=== PATIENT | female | born 1955 | race Two or more races ===

== ENCOUNTER 2018-08-09 18:46 | Observation (INO) | payer OTHER ==
--- NOTE | 2018-08-09 19:28 | PDOC ---
History of Present Illness - General Chief Complaint: Chest Pain Stated Complaint: CHEST PAIN Time Seen by Provider: 08/09/18 19:26 - History of Present Illness Initial Comments: 63 year old female with a significant PMH of DM, HTN, hyperlipidemia, GERD, gastric ulcers, asthma, fibromyalgia, and is s/p cholecystectomy, cardiac stent (15 years prior in [place]), and bladder lift presenting with acute on chronic chest pain. States that she has had chronic chest pain for the past 10 years which flares up approximately 3 times per month, she typically just waits for the pain to subside and has had Tylenol in the past without much relief. She states the pain is in her upper left and bilateral shoulders with worsening on upper body movement and deep inhalation. She does take gabapentin and lyrica for her fibromyalgia. Denies fevers, chills, nausea, vomiting, diarrhea, SOB, or other symptoms. 08/09/18 20:49 Past History - Past Medical History Allergies/Adverse Reactions: Allergies Allergy/AdvReac Type Severity Reaction Status Date / Time No Known Drug Allergies Allergy Verified 08/09/18 18:53 Home Medications: Ambulatory Orders Pregabalin [Lyrica -] 75 mg PO TID 09/15/14 Gabapentin 300 mg PO BID 08/09/18 Metoprolol Succinate 25 mg PO DAILY 08/09/18 Anemia: No Asthma: No Cancer: Yes (RT.BREST LUMPECTOMY) Cardiac Disorders: Yes CVA: No COPD: No CHF: No Dementia: No Diabetes: Yes GI Disorders: Yes Disorders: No HTN: Yes Hypercholesterolemia: No Liver Disease: No Seizures: No Thyroid Disease: No - Surgical History Abdominal Surgery: No Appendectomy: No Cardiac Surgery: Yes (stent) Cholecystectomy: Yes Lung Surgery: No Neurologic Surgery: Yes (spine surgery) Orthopedic Surgery: No - Immunization History Immunization Up to Date: No - Suicide/Smoking/Psychosocial Hx Smoking Status: No Smoking History: Never smoked Years of Tobacco Use: 30 Have you smoked in the past 12 months: No Number of Cigarettes Smoked Daily: 0 Cigars Per Day: 2 Information on smoking cessation initiated: No Hx Alcohol Use: No Drug/Substance Use Hx: No Substance Use Type: None Hx Substance Use Treatment: No Review of Systems - Review of Systems Constitutional: No: Chills, Diaphoresis, Fever, Loss of Appetite HEENTM: No: Eye Pain, Blurred Vision, Tearing Respiratory: No: Cough, Orthopnea, Shortness of Breath Cardiac (ROS): No: Chest Pain, Edema, Irregular Heart Rate ABD/GI: No: Diarrhea, Nausea, Vomiting : No: Dysuria, Discharge, Frequency Musculoskeletal: Yes: Joint Pain. No: Joint Swelling, Muscle Pain Integumentary: No: Bruising, Lesions, Lumps Neurological: No: Headache, Numbness, Paresthesia Psychiatric: Yes: Anxiety. No: Depression Hematologic/Lymphatic: No: Anemia, Blood Clots *Physical Exam - Vital Signs Last Vital Signs Temp Pulse Resp BP Pulse Ox 98.6 F 69 17 128/68 95 08/09/18 18:53 08/09/18 18:53 08/09/18 18:53 08/09/18 18:53 08/09/18 18:53 - Physical Exam General Appearance: Yes: Nourished, Appropriately Dressed. No: Apparent Distress HEENT: positive: EOMI, SIRENA, Normal ENT Inspection, Normal Voice Neck: positive: Trachea midline, Normal Thyroid, Supple. negative: Tender, Rigid Respiratory/Chest: positive: Chest Tender (TP over left uppe breast and bilateral shoulders), Lungs Clear, Normal Breath Sounds. negative: Respiratory Distress Cardiovascular: positive: Regular Rhythm, Regular Rate Gastrointestinal/Abdominal: positive: Normal Bowel Sounds, Flat, Soft. negative : Tender Lymphatic: negative: Adenopathy, Tenderness Musculoskeletal: positive: Normal Inspection, Decreased Range of Motion Extremity: positive: Normal Capillary Refill, Normal Inspection, Tender. negative: Normal Range of Motion Integumentary: positive: Normal Color, Dry, Warm Neurologic: positive: Fully Oriented, Alert, Normal Mood/Affect, Normal Response , Motor Strength 5/5 Heart Score/ECG Review - History History: Moderately suspicious - Electrocardiogram EKG: Normal - Age Age: 45-65 - Risk Factors Risk Factors Heart Score: Yes Hx Hypercholesterolemia, Yes Hx Hypertension, Yes Hx Diabetes Based on the list above the patient has:: >/=3 risk factors or Hx atherosclerotic disease - Troponin Troponin: </= normal limit - Score Heart Score - Total: 4 ED Treatment Course - LABORATORY CBC & Chemistry Diagram: 08/09/18 19:50 08/09/18 19:50 Medical Decision Making - Medical Decision Making 63 year old with CAD and chronic chest pain presenting with acute chest pain. EKG demonstratign NSR without ischemic changes and labs wnl with negative troponin. Will admit for tele obs for rule out acs given heart score of 4. patient also given cardiac dose aspirin 08/10/18 04:40 *DC/Admit/Observation/Transfer Diagnosis at time of Disposition: Chest pain Qualifiers: Chest pain type: pleurodynia Qualified Code(s): R07.81 - Pleurodynia - Discharge Dispostion Condition at time of disposition: Stable Decision to Admit order: Yes - Referrals - Patient Instructions - Post Discharge Activity
--- NOTE | 2018-08-09 20:37 | PDOC ---
Attending Attestation - HPI HPI: 08/09/18 21:23 The patient is a 63 year old female, as per old documentation patient has a significant PMH of DM, HTN, hyperlipidemia, GERD, gastric ulcers, asthma, fibromyalgia, and is s/p cholecystectomy, cardiac stent, and bladder lift, however, today she reports she only has fibromyalgia (on gabapentin and disability) who presents to the emergency department with epigastric pain and bilateral shoulder pain since 9am, with no relief. The patient states her shoulder pain is aggravated with shoulder movement. The patient denies taking any medication today besides her gabapentin. The patient states she endorses nausea and stomach pain that is due to not eating today. The patient denies chest pain, shortness of breath, headache or dizziness. The patient denies fever, chills, diarrhea or constipation. The patient denies dysuria, frequency, urgency or hematuria. Allergies: NKA Past surgical history: RT.BREST LUMPECTOMY, Cholecystectomy, spine surgery Social history: Tobacco use ( 2 cigars per day) PCP: Ayanna Jennings - Physicial Exam PE: 08/09/18 21:23 GENERAL: Awake, alert, and fully oriented, in no acute distress HEAD: No signs of trauma EYES: (+) arcus senilis. PERRLA, EOMI, sclera anicteric, conjunctiva clear ENT: Auricles normal inspection, hearing grossly normal, nares patent, oropharynx clear without exudates. Moist mucosa NECK: Normal ROM, supple, no lymphadenopathy, JVD, or masses LUNGS: Breath sounds equal, clear to auscultation bilaterally. No wheezes, and no crackles HEART: Regular rate and rhythm, normal S1 and S2, no murmurs, rubs or gallops ABDOMEN: Soft, nontender, normoactive bowel sounds. No guarding, no rebound. No masses EXTREMITIES: (+) minimal epigastric pain. (+) bilateral shoulder tenderness. Normal range of motion, no edema. No clubbing or cyanosis. No cords, erythema, or tenderness NEUROLOGICAL: Cranial nerves II through XII grossly intact. Normal speech, normal gait SKIN: Warm, Dry, normal turgor, no rashes or lesions noted. <Mare Barney - Last Filed: 08/09/18 21:23> - Resident Resident Name: Ali,Khameinei - ED Attending Attestation I have performed the following: I have examined & evaluated the patient, The case was reviewed & discussed with the resident, I agree w/resident's findings & plan - Medical Decision Making 08/09/18 21:16 Pt comes with epigastric pain, as well as bilateral shoulder pain. Pt states that the pain has not remitted. Her shoulder pain is worse with ranging of her shoulders. 08/09/18 21:18 08/09/18 21:19 Pt has clear lung blount on CXR. Slightly globular heart, same as old. 08/09/18 22:17 First troponin normal; chemistry is normal Pt will be admitted to obs <Yneni Grayson - Last Filed: 08/10/18 20:29> Attestations - Attestations 08/09/18 21:24 Documentation prepared by Mare Barney, acting as medical technologist hematology for Yenni Grayson MD <Mare Barney - Last Filed: 08/09/18 21:23>
[2018-08-09] MEDS ORDERED: KETOROLAC TROMETHAMINE 30 MG/1 ML VIAL IVPUSH ONE (21:15)
[2018-08-09] MEDS ORDERED: FAMOTIDINE 20 MG/50 ML IVPB 20 MG/50 ML MG IVPB ONE ×2 (21:15→21:29)
[2018-08-09] MEDS ORDERED: SODIUM CHLORIDE 0.9% 500 ML INFUS.BAG IV ONE (21:15)
[2018-08-09] MEDS ORDERED: MAG HYDROX/AL HYDROX/SIMETH 30 ML UNIT-DOSE CUP PO ONE (21:15)
[2018-08-09] MEDS ORDERED: ASPIRIN 81 MG CHEWABLE TABLETS PO ONE (21:18)
[2018-08-09 21:26] LABS: ALBUMIN 3.4 g/dl (3.4-5.0); ALK PHOS 89 U/L (45-117); ANION GAP 6 MMOL/L (8-16); BILIRUBIN,TOTAL 0.3 mg/dL (0.2-1); BLOOD UREA NITROGEN 23 mg/dL (7-18); CALCIUM 8.3 mg/dL (8.5-10.1); CHLORIDE 109 mmol/L (98-107); CO2 28 mmol/L (21-32); GLUCOSE,RANDOM 92 mg/dL (74-106); N-TERMINAL BNP 134.3 pg/ml (5-125); POTASSIUM 4.3 mmol/L (3.5-5.1); SGOT/AST 21 U/L (15-37); SGPT/ALT 37 U/L (13-61); SODIUM 143 mmol/L (136-145); TOT PROT 6.8 g/dl (6.4-8.2)
[2018-08-09] MEDS ORDERED: ASPIRIN 81 MG CHEWABLE TABLETS ONE (21:28)
[2018-08-09] MEDS ORDERED: KETOROLAC TROMETHAMINE 30 MG/1 ML VIAL ONE (21:29)
[2018-08-09] MEDS ORDERED: MAG HYDROX/AL HYDROX/SIMETH 30 ML UNIT-DOSE CUP ONE (21:29)
[2018-08-09 22:50] LABS: BASO % 0.2 % (0-2.0); HEMATOCRIT 37.7 % (32.4-45.2); HEMOGLOBIN 12.2 GM/dL (10.7-15.3); MCH 28.3 pg (25.7-33.7); MCHC 32.3 g/dl (32.0-36.0); MEAN CELL VOLUME 87.6 fl (80-96); MEAN PLT VOLUME 9.5 fl (7.5-11.1); MONO % 7.6 % (3.8-10.2); NEUT % 54.2 % (42.8-82.8); PLATELET COUNT 228 K/MM3 (134-434); RBC 4.31 M/mm3 (3.60-5.2); RDW 14.9 % (11.6-15.6); WHITE BLOOD COUNT 6.9 K/mm3 (4.0-10.0)
--- NOTE | 2018-08-09 23:01 | HP ---
CHIEF COMPLAINT: Chest pain PCP: Dr. Manzano HISTORY OF PRESENT ILLNESS: Ashley Kaur is a 63 yr old F, medical condition DM, HTN, hyperlipidemia, GERD , gastric ulcers, asthma, fibromyalgia, and is s/p cholecystectomy, cardiac stent, and bladder lift, presented to ED with c/o left sided chest pain, pain radiating to both shoulders down arms, that started this morning, pt denies sob , dizziness, as per pt, reports getting chest pain in the past, ER course was notable for: (1)Trop 0.02 (2)EKG NSR (3) Recent Travel: PAST MEDICAL HISTORY:DM, HTN, hyperlipidemia, GERD, gastric ulcers, asthma, fibromyalgia, PAST SURGICAL HISTORY:s/p cholecystectomy, cardiac stent, bladder lift, Social History: Smoking:smokes 2 cigars Alcohol:denies Drugs: denies Family History: Allergies No Known Drug Allergies Allergy (Verified 08/09/18 18:53) HOME MEDICATIONS: Home Medications Medication Instructions Recorded Pregabalin [Lyrica -] 75 mg PO TID 09/15/14 Gabapentin 300 mg PO BID 08/09/18 Metoprolol Succinate 25 mg PO DAILY 08/09/18 REVIEW OF SYSTEMS CONSTITUTIONAL: Absent: fever, chills, diaphoresis, generalized weakness, malaise, loss of appetite, weight change HEENT: Absent: rhinorrhea, nasal congestion, throat pain, throat swelling, difficulty swallowing, mouth swelling, ear pain, eye pain, visual changes CARDIOVASCULAR: +chest pain Absent: syncope, palpitations, irregular heart rate, lightheadedness, peripheral edema RESPIRATORY: Absent: cough, shortness of breath, dyspnea with exertion, orthopnea, wheezing, stridor, hemoptysis GASTROINTESTINAL: Absent: abdominal pain, abdominal distension, nausea, vomiting, diarrhea, constipation, melena, hematochezia GENITOURINARY: Absent: dysuria, frequency, urgency, hesitancy, hematuria, flank pain, genital pain MUSCULOSKELETAL: + bilateral shoulder pain Absent: myalgia, arthralgia, joint swelling, back pain, neck pain SKIN: Absent: rash, itching, pallor HEMATOLOGIC/IMMUNOLOGIC: Absent: easy bleeding, easy bruising, lymphadenopathy, frequent infections ENDOCRINE: Absent: unexplained weight gain, unexplained weight loss, heat intolerance, cold intolerance NEUROLOGIC: Absent: headache, focal weakness or paresthesias, dizziness, unsteady gait, seizure, mental status changes, bladder or bowel incontinence PSYCHIATRIC: Absent: anxiety, depression, suicidal or homicidal ideation, hallucinations. PHYSICAL EXAMINATION Vital Signs - 24 hr 08/09/18 08/09/18 18:53 19:30 Temperature 98.6 F Pulse Rate 69 Respiratory 17 Rate Blood Pressure 128/68 O2 Sat by Pulse 95 95 Oximetry (%) GENERAL: Awake, alert, and fully oriented, in no acute distress. HEAD: Normal with no signs of trauma. EYES: Pupils equal, round and reactive to light, extraocular movements intact, sclera anicteric, conjunctiva clear. No lid lag. EARS, NOSE, THROAT: Ears normal, nares patent, oropharynx clear without exudates. Moist mucous membranes. NECK: Normal range of motion, supple without lymphadenopathy, JVD, or masses. LUNGS: Breath sounds equal, clear to auscultation bilaterally. No wheezes, and no crackles. No accessory muscle use. HEART: Regular rate and rhythm, normal S1 and S2 without murmur, rub or gallop. ABDOMEN: Soft, nontender, not distended, normoactive bowel sounds, no guarding, no rebound, no masses. No hepatomegaly or splenomegaly. MUSCULOSKELETAL: limited range of motion b/l upper ext. . No bony deformities or tenderness. No CVA tenderness. UPPER EXTREMITIES: 2+ pulses, warm, well-perfused. No cyanosis. No clubbing. No peripheral edema. LOWER EXTREMITIES: 2+ pulses, warm, well-perfused. No calf tenderness. No peripheral edema. NEUROLOGICAL: Cranial nerves II-XII intact. Normal speech. Normal gait. PSYCHIATRIC: Cooperative. Good eye contact. Appropriate mood and affect. SKIN: Warm, dry, normal turgor, no rashes or lesions noted, normal capillary refill. Laboratory Results - last 24 hr 08/09/18 08/09/18 19:50 19:50 WBC 6.9 RBC 4.31 Hgb 12.2 Hct 37.7 MCV 87.6 MCH 28.3 MCHC 32.3 RDW 14.9 Plt Count 228 MPV 9.5 Absolute Neuts (auto) 3.7 Neutrophils % 54.2 D Lymphocytes % 37.0 Monocytes % 7.6 Eosinophils % 1.0 Basophils % 0.2 Nucleated RBC % 0 Sodium 143 Potassium 4.3 Chloride 109 H Carbon Dioxide 28 Anion Gap 6 L BUN 23 H Creatinine 1.0 Creat Clearance w eGFR 55.82 Random Glucose 92 Calcium 8.3 L Total Bilirubin 0.3 AST 21 ALT 37 Alkaline Phosphatase 89 Troponin I < 0.02 B-Natriuretic Peptide 134.3 H Total Protein 6.8 Albumin 3.4 ASSESSMENT/PLAN: Ashley Kaur is a 63 yr old F, medical condition DM, HTN, Fibromyalgia, GERD, gastric ulcers, asthma, admitted under observation for Admitting Diagnosis acute on chronic Chest pain r/o FL Chronic Problems DM HTN Fibromyalgia GERD Asthma #acute on chronic, Chest pain r/o FL -tele obs -asa, on BB -serial trop, 1st trop 0.02 -EKG NSR -Cardio consult Dr. Crawford -pain mgt #DM -monitor FS BID -not on meds -diet controlled #HTN -on BB #Fibromyalgia -on lyrica and gabapentin #GERD -received pepcid in ED-will cont #Asthma-stable -o2 pRN -no use of inhalers Dispo: requires inpatient treatment Visit type - Emergency Visit Emergency Visit: Yes Care time: The patient presented to the Emergency Department on the above date and was hospitalized for further evaluation of their emergent condition. - New Patient This patient is new to me today: Yes Date on this admission: 08/09/18 - Critical Care Critical Care patient: No
[2018-08-10 03:58] VITALS: BMI 33.0
[2018-08-10] MEDS: PREGABALIN 75 MG CAPSULE PO SCH ×2 (06:44→13:31)
--- NOTE | 2018-08-10 08:09 | PN ---
Progress Note, Physician Chief Complaint: Chest pain History of Present Illness: NAD On tele initial eval negative No changes in EKG Trops negative awaiting cardiology consult has had similar pains in the past Sees Dr Herman EGD+ colonoscopy within past 1 year-states it was okay Hx of gastric sleeve Not on any PPI at home Denies any NSAID use - Current Medication List Current Medications: Active Medications Aspirin (Ecotrin -) 81 mg PO DAILY [facility] Gabapentin (Neurontin -) 300 mg PO BID [facility] Heparin Sodium (Porcine) (Heparin -) 5,000 unit SQ BID [facility] Famotidine/Sodium Chloride (Pepcid 20 Mg Premixed Ivpb -) 20 mg in 50 mls @ 100 mls/hr IVPB BID [facility] Metoprolol Succinate (Toprol Xl -) 25 mg PO DAILY [facility] Pregabalin (Lyrica -) 75 mg PO TID [facility] Last Admin: 08/10/18 06:44 Dose: 75 mg - Objective Vital Signs: Vital Signs Temperature 97.9 F 08/10/18 06:00 Pulse Rate 56 L 08/10/18 06:00 Respiratory Rate 16 08/10/18 06:00 Blood Pressure 125/74 08/10/18 06:00 O2 Sat by Pulse Oximetry (%) 98 08/10/18 03:45 Constitutional: Yes: Well Nourished, No Distress, Calm Cardiovascular: Yes: Regular Rate and Rhythm Respiratory: Yes: Regular Gastrointestinal: Yes: Normal Bowel Sounds, Soft, Tenderness, Epigastrium Musculoskeletal: Yes: WNL Extremities: Yes: WNL Edema: No Peripheral Pulses WNL: Yes Neurological: Yes: Alert, Oriented Psychiatric: Yes: Alert, Oriented Problem List - Problems (1) Atypical chest pain Assessment/Plan: -No EKG changes -Mildly bradycardic-asymptomatic -On toporol 25 mg po daily, decreased to 12.5 mg Code(s): R07.89 - OTHER CHEST PAIN (2) Epigastric abdominal pain Assessment/Plan: -Hx of gastric ulcers -Seen by Dr Herman outaptient -Has EGD and Colonoscopy within past 1 year-states the results were okay -Not on any PPI at home -Has had similar pains in the past -Mylanta 30 ml Q6H mirian for next 24 hours, -also start pantoprazole 40 mg po QD Code(s): R10.13 - EPIGASTRIC PAIN (3) History of sleeve gastrectomy Code(s): Z90.3 - ACQUIRED ABSENCE OF STOMACH [PART OF] Assessment/Plan See problem list Self ambulatory D/C home on PPI if cleared by Cardiology
[2018-08-10 08:13] LABS: BASO % 0.3 % (0-2.0); EOS % 0.9 % (0-4.5); HEMATOCRIT 36.9 % (32.4-45.2); LYMPH % 36.4 % (8-40); MCH 28.1 pg (25.7-33.7); MCHC 32.6 g/dl (32.0-36.0); MEAN CELL VOLUME 86.1 fl (80-96); MEAN PLT VOLUME 9.5 fl (7.5-11.1); MONO % 7.1 % (3.8-10.2); NEUT % 55.3 % (42.8-82.8); PLATELET COUNT 224 K/MM3 (134-434); RBC 4.28 M/mm3 (3.60-5.2); WHITE BLOOD COUNT 5.3 K/mm3 (4.0-10.0)
--- NOTE | 2018-08-10 08:15 | CON.CARD ---
Consult Consult Specialty:: cardio - History of Present Illness Chief Complaint: cp History of Present Illness: 63 F here with CP. pt describes pinpoint pain R of sternal border (1 fingerbreadth) that occurred yest. tender in this area. also describes pain in both arms--WORSE WITH MOVEMENT OF THE ARMS so kept them still doesn't know whether had stent in past but had cath at [facility] "long time ago"-- sees zuleika has sob when walks on street WHICH IS STABLE FOR YEARS no fever no palpit PMH: DM, HTN, hyperlipidemia, GERD, gastric ulcers, asthma, fibromyalgia, and is s/p cholecystectomy, cardiac stent - Past Medical History Cardio/Vascular: Yes: HTN Musculoskeletal: Yes: Chronic low back pain Endocrine: Yes: Diabetes Mellitus - Past Surgical History Past Surgical History: Yes: Laminectomy (cervical, decompression and fusion, lumbar fusion) - Alcohol/Substance Use Hx Alcohol Use: No History of Substance Use: reports: None - Smoking History Smoking history: Never smoked Have you smoked in the past 12 months: No Aproximately how many cigarettes per day: 0 - Social History Occupation: former [employer] now on disability/workman's comp x3 years Home Medications - Allergies Allergies/Adverse Reactions: Allergies Allergy/AdvReac Type Severity Reaction Status Date / Time No Known Drug Allergies Allergy Verified 08/09/18 18:53 - Home Medications Home Medications: Ambulatory Orders Pregabalin [Lyrica -] 75 mg PO TID 09/15/14 Gabapentin 300 mg PO BID 08/09/18 Metoprolol Succinate 25 mg PO DAILY 08/09/18 Family Disease History - Family Disease History Family Disease History: Diabetes: Mother (leg ampuations), CA: Sister (breast cancer), Other: Father (HTN) Review of Systems - Review of Systems Constitutional: denies: Chills, Fever Eyes: denies: Eye Pain HENT: denies: Nasal Congestion Neck: denies: Stiffness Cardiovascular: denies: Palpitations Respiratory: denies: Orthopnea, PND Gastrointestinal: denies: Diarrhea, Rectal Bleeding Genitourinary: denies: Burning, Hematuria Musculoskeletal: denies: Muscle Pain Integumentary: denies: Rash Neurological: denies: Numbness, Seizure, Syncope Endocrine: denies: Excessive Sweating Hematology/Lymphatic: denies: Excessive Bleeding Vital Signs: Vital Signs Temperature 97.9 F 08/10/18 06:00 Pulse Rate 56 L 08/10/18 06:00 Respiratory Rate 16 08/10/18 06:00 Blood Pressure 125/74 08/10/18 06:00 O2 Sat by Pulse Oximetry (%) 98 08/10/18 03:45 Constitutional: Yes: Well Nourished, No Distress Eyes: No: Sclera Icterus HENT: No: Nasal Congestion Neck: No: Decreased ROM Respiratory: Yes: CTA Bilaterally. No: Accessory Muscle Use, Rales, Wheezes Gastrointestinal: Yes: Normal Bowel Sounds. No: Distention, Hepatomegaly, Palpable Mass, Tenderness Cardiovascular: Yes: Regular Rate and Rhythm, Other (exquisite tenderness over affecte area R costochondral) JVD: No Carotid Bruit: No PMI: Non-Displaced Heart Sounds: Yes: S1, S2. No: Gallop Murmur: No: Systolic Murmur, Diastolic Murmur Musculoskeletal: Yes: Other (No kyphosis) Extremities: No: Cool, Cyanosis Edema: No Peripheral Pulses: 2+ Left Carotid, 2+ Right Carotid, 2+ Left Doralis Pedis, 2+ Right Dorsalis Pedis Integumentary: No: Jaundice Neurological: Yes: Alert, Oriented (x3) Psychiatric: No: Agitated - Other Data Labs, Other Data: Troponin, BNP 08/09/18 08/10/18 19:50 02:49 Troponin I < 0.02 < 0.02 B-Natriuretic Peptide 134.3 H Troponin, BNP 08/09/18 08/10/18 19:50 02:49 Troponin I < 0.02 < 0.02 B-Natriuretic Peptide 134.3 H Laboratory Tests 08/09/18 08/09/18 08/10/18 19:50 19:50 02:49 WBC 6.9 Hgb 12.2 Plt Count 228 Sodium 143 Potassium 4.3 Carbon Dioxide 28 BUN 23 H Creatinine 1.0 AST 21 ALT 37 Troponin I < 0.02 < 0.02 B-Natriuretic Peptide 134.3 H Assessment/Plan ECG 08/09: NSR, WNL CXR: clear lungs/pleura chest pain, h/o CAD: -details of prior cardiac w/u and mgmt unknown -trop neg x 2. -ECG normal -CP is sec to costochondritis, reproducible on exam--prn NSAIDs -bilat arm pain is mskel with strong positional features -no further cv workup needed as inpt -outpt f/u zuleika HTN: -bp controlled -same plan DM: -per primary
[2018-08-10 08:42] LABS: ALBUMIN 3.2 g/dl (3.4-5.0); ALK PHOS 80 U/L (45-117); ANION GAP 6 MMOL/L (8-16); BILIRUBIN,TOTAL 0.9 mg/dL (0.2-1); BLOOD UREA NITROGEN 17 mg/dL (7-18); CALCIUM 8.3 mg/dL (8.5-10.1); CHLORIDE 109 mmol/L (98-107); CO2 28 mmol/L (21-32); CREATININE 0.9 mg/dL (0.55-1.3); GLUCOSE,RANDOM 82 mg/dL (74-106); MAGNESIUM 2.4 mg/dL (1.8-2.4); POTASSIUM 4.7 mmol/L (3.5-5.1); SGOT/AST 30 U/L (15-37); SGPT/ALT 39 U/L (13-61); SODIUM 143 mmol/L (136-145); TOT PROT 6.4 g/dl (6.4-8.2)
[2018-08-10] MEDS: MAG HYDROX/AL HYDROX/SIMETH 30 ML UNIT-DOSE CUP PO SCH ×2 (09:35→12:23)
[2018-08-10] MEDS ORDERED: HEPARIN NA (PORCINE) 5,000 UNITS/ML 1ML VIAL SQ SCH (10:00)
[2018-08-10] MEDS ORDERED: ASPIRIN COATED 81 MG TABLET.EC PO SCH (10:00)
[2018-08-10] MEDS ORDERED: metoPROLOL SUCCINATE 25 MG TAB.SR.24H (FP) PO SCH (10:00)
[2018-08-10] MEDS ORDERED: GABAPENTIN 300 MG CAPSULE (FP) PO SCH ×2 (10:00→14:00)
[2018-08-10] MEDS ORDERED: PANTOPRAZOLE 40 MG TABLET (FP) PO SCH (10:00)
[2018-08-10] MEDS ORDERED: FAMOTIDINE 20 MG/50 ML IVPB 20 MG/50 ML MG IVPB SCH (10:00)
[2018-08-10 10:16] VITALS: BP 90/43; PULSE 55; TEMP 97.2
--- NOTE | 2018-08-12 10:42 | EKG ---
Test Reason : Blood Pressure : / mmHG Vent. Rate : 064 BPM Atrial Rate : 064 BPM P-R Int : 160 ms QRS Dur : 076 ms QT Int : 418 ms P-R-T Axes : 055 032 041 degrees QTc Int : 431 ms NORMAL SINUS RHYTHM NORMAL ECG WHEN COMPARED WITH ECG OF 12-JUL-2015 04:57, NO SIGNIFICANT CHANGE WAS FOUND Confirmed by BISI MELGOZA MD ([id number]) on 08/12/2018 10:41:32 AM Referred By: Confirmed By:BISI MELGOZA MD
== END 2018-08-10 14:39 | disposition home or self-care (01) ==
LOC: JER 18:46 → JERBED 21:34 → J4W 08-10 03:41
PROVIDERS: ADMIT Internal Medicine; ATTEND Family Medicine
PROC: 3E033GC Introduction of Other Therapeutic Substance into Peripheral Vein, Percutaneous Approach (ICD-10-PCS; principal; 2018-08-09)
PROC: 3E0337Z Introduction of Electrolytic and Water Balance Substance into Peripheral Vein, Percutaneous Approach (ICD-10-PCS; 2018-08-09)
PROC: 3E013GC Introduction of Other Therapeutic Substance into Subcutaneous Tissue, Percutaneous Approach (ICD-10-PCS; 2018-08-09)
DX: R07.89 Other chest pain (principal); R10.13 Epigastric pain; I10 Essential (primary) hypertension; I25.10 Atherosclerotic heart disease of native coronary artery without angina pectoris; E78.5 Hyperlipidemia, unspecified; E11.9 Type 2 diabetes mellitus without complications; K21.9 Gastro-esophageal reflux disease without esophagitis; J45.909 Unspecified asthma, uncomplicated; M79.7 Fibromyalgia; Z95.5 Presence of coronary angioplasty implant and graft; Z87.11 Personal history of peptic ulcer disease; Z90.3 Acquired absence of stomach [part of]
CPT/HCPCS: 36415; 71046-TC-FY; 80053; 82962; 83735; 83880; 84484; 85025; 93005; 93010; 96365; 96372; 96375; 99283-25; G0378; J1644

== ENCOUNTER 2018-12-23 14:37 | Emergency (ER) | payer OTHER ==
--- NOTE | 2018-12-23 14:41 | PDOC ---
Rapid Medical Evaluation Chief Complaint: Pain Time Seen by Provider: 12/23/18 14:39 Medical Evaluation: Allergies Allergy/AdvReac Type Severity Reaction Status Date / Time No Known Drug Allergies Allergy Verified 09/10/18 09:12 12/23/18 14:40 Patient had brief in-person examination in triage cc:pain to left foot x 3 weeks reports possible insect bite HPI: alert and oriented x 3 left huang with small circular swollen area, and punctuate orders: none This patient will proceed to ed for further evaluation Discharge Disposition - Diagnosis Insect bite - Referrals - Patient Instructions - Post Discharge Activity
[2018-12-23 14:42] VITALS: BP 111/53; PULSE 76; TEMP 97.6; BMI 29.2
[2018-12-23] MEDS ORDERED: LIDOCAINE HCL 1%, 10 MG/ML (20ML VIAL) ONE (15:01)
--- NOTE | 2018-12-23 15:41 | PDOC ---
History of Present Illness - General Chief Complaint: Pain Stated Complaint: LT LEG PAIN Time Seen by Provider: 12/23/18 14:39 - History of Present Illness Initial Comments: 12/23/18 15:36 63 y/o f presents with atraumatic left lower leg pain. She points to the painful area on the anterior aspect of her left leg she feels this may be related to a bug bite Past History - Past Medical History Allergies/Adverse Reactions: Allergies Allergy/AdvReac Type Severity Reaction Status Date / Time No Known Drug Allergies Allergy Verified 12/23/18 14:42 Home Medications: Ambulatory Orders Pregabalin [Lyrica -] 75 mg PO TID 09/15/14 Gabapentin 300 mg PO BID 08/09/18 Metoprolol Succinate 25 mg PO DAILY 08/09/18 Gabapentin [Neurontin -] 300 mg PO TID #90 capsule 08/10/18 Mag Hydrox/Al Hydrox/Simeth [Mylanta Oral Suspension -] 30 ml PO Q6HPO PRN #1 bot 08/10/18 Pantoprazole Sodium [Protonix -] 40 mg PO DAILY #30 tablet.ec 08/10/18 Anemia: No Asthma: No Cancer: Yes (RT.BREST LUMPECTOMY) Cardiac Disorders: Yes CVA: No COPD: No CHF: No Dementia: No Diabetes: Yes GI Disorders: Yes Disorders: No HTN: Yes Hypercholesterolemia: Yes Liver Disease: No Seizures: No Thyroid Disease: No - Surgical History Abdominal Surgery: No Appendectomy: No Cardiac Surgery: Yes (stent) Cholecystectomy: Yes Lung Surgery: No Neurologic Surgery: Yes (spine surgery) Orthopedic Surgery: No - Immunization History Immunization Up to Date: No - Suicide/Smoking/Psychosocial Hx Smoking Status: No Smoking History: Never smoked Years of Tobacco Use: 30 Have you smoked in the past 12 months: No Number of Cigarettes Smoked Daily: 0 Cigars Per Day: 2 Information on smoking cessation initiated: No Hx Alcohol Use: No Drug/Substance Use Hx: No Substance Use Type: None Hx Substance Use Treatment: No Review of Systems - Review of Systems Constitutional: No: Fever Musculoskeletal: Yes: See HPI *Physical Exam - Vital Signs Last Vital Signs Temp Pulse Resp BP Pulse Ox 97.6 F 76 17 111/53 L 98 12/23/18 14:40 12/23/18 14:40 12/23/18 14:40 12/23/18 14:40 12/23/18 14:40 - Physical Exam Comments: 12/23/18 15:39 Lower leg skin color and temperature are normal range of motion of knee and ankle are full and nonpainful. Thighs and calves are soft and nontender. There is a small circumferential area which is tender on the anterior aspect of the left lower leg about a third of the way proximal to the medial malleolus there is no fluctuance induration or warmth. The area is exquisitely sensitive there are no gross sensory motor deficits neurovascular intact ED Treatment Course - RADIOLOGY Radiology Studies Ordered: Category Date Time Status LEG TIB/FIB-LEFT [RAD] Stat Radiology 12/23/18 14:51 Taken Medical Decision Making - Medical Decision Making 12/23/18 15:42 X-rays show no evidence of fracture trauma or destructive process. *DC/Admit/Observation/Transfer Diagnosis at time of Disposition: Insect bite - Discharge Dispostion Disposition: HOME Condition at time of disposition: Stable Decision to Admit order: No - Referrals Referrals: Ayanna Manzano MD [Primary Care Provider] - - Patient Instructions Printed Discharge Instructions: DI for Animal Bites Additional Instructions: Return to the emergency room for worsening symptoms. Please follow-up with your primary care doctor in 1-2 days for further evaluation and treatment options. Knee x-rays were normal today there is no indication of infection. Again without fail please follow-up with her primary care doctor there is no reason for antibiotics at this time. - Post Discharge Activity
== END 2018-12-23 16:09 | disposition home or self-care (01) ==
LOC: JERFT 14:37
DX: S80.862A Insect bite (nonvenomous), left lower leg, initial encounter (principal); W57.XXXA Bitten or stung by nonvenomous insect and other nonvenomous arthropods, initial encounter; Y93.89 Activity, other specified; Y92.89 Other specified places as the place of occurrence of the external cause; Y99.8 Other external cause status; I25.10 Atherosclerotic heart disease of native coronary artery without angina pectoris; I10 Essential (primary) hypertension; Z95.5 Presence of coronary angioplasty implant and graft; E78.00 Pure hypercholesterolemia, unspecified; Z87.19 Personal history of other diseases of the digestive system; Z85.3 Personal history of malignant neoplasm of breast
CPT/HCPCS: 73590-TC-LT-FY; 99281-25

== ENCOUNTER 2020-11-28 12:57 | Emergency (ER) | payer OTHER ==
[2020-11-28 13:04] VITALS: BP 118/78; PULSE 86; TEMP 97
[2020-11-28] MEDS ORDERED: KETOROLAC TROMETHAMINE 30 MG/1 ML VIAL IM ONE (13:47)
[2020-11-28] MEDS ORDERED: METHOCARBAMOL 500 MG TABLET PO ONE (13:47)
[2020-11-28] MEDS ORDERED: KETOROLAC TROMETHAMINE 30 MG/1 ML VIAL ONE (13:48)
[2020-11-28] MEDS ORDERED: METHOCARBAMOL 500 MG TABLET ONE ×2 (13:48→14:06)
== END 2020-11-28 16:16 | disposition home or self-care (01) ==
LOC: JERFT 12:57 → JER 12:57 → JERFT 16:16
PROC: 3E023GC Introduction of Other Therapeutic Substance into Muscle, Percutaneous Approach (ICD-10-PCS; principal; 2020-11-28)
DX: M62.830 Muscle spasm of back (principal); M54.15 Radiculopathy, thoracolumbar region
CPT/HCPCS: 72125-TC; 72128-TC; 96372; 99284-25

== ENCOUNTER 2022-08-16 10:29 | Day surgery (SDC) | payer OTHER ==
[2022-08-14 15:44] VITALS: BMI 27.4
[2022-08-16 12:40] VITALS: TEMP 98
[2022-08-16 12:41] VITALS: RESP 18
[2022-08-16 12:42] VITALS: BP 124/78; PULSE 83
== END 2022-08-16 13:44 | disposition home or self-care (01) ==
LOC: FASU-ENDO 10:29
PROVIDERS: ATTEND Internal Medicine Gastroenterology
PROC: 0DBN8ZX Excision of Sigmoid Colon, Via Natural or Artificial Opening Endoscopic, Diagnostic (ICD-10-PCS; principal; 2022-08-16 11:45)
DX: Z12.11 Encounter for screening for malignant neoplasm of colon (principal); K63.5 Polyp of colon; K64.1 Second degree hemorrhoids
CPT/HCPCS: 88305-TC

== ENCOUNTER 2022-11-07 05:15 | Day surgery (SDC) | payer OTHER ==
[2022-11-06 11:08] VITALS: BMI 27.4
[~2022-11-07 05:15] MED LIST: DEXAMETHASONE SOD PHOSPHATE 10 MG/1 ML VIAL IM ONE; IOHEXOL 180 MG/1 ML ML IJ ONE
[2022-11-07] MEDS ORDERED: LIDOCAINE HCL/PF 1% SDV 5ML VIAL ONE (07:46)
[2022-11-07] MEDS ORDERED: DEXAMETHASONE SOD PHOSPHATE 10 MG/1 ML VIAL ONE (07:47)
[2022-11-07] MEDS ORDERED: LIDOCAINE HCL 1% PRESERVATIVE FREE - 30ML VIAL IJ ONE (09:44)
[2022-11-07] MEDS ORDERED: IOHEXOL 180 MG/1 ML ML IJ ONE (09:48)
[2022-11-07] MEDS ORDERED: DEXAMETHASONE SOD PHOSPHATE 10 MG/1 ML VIAL IM ONE (09:51)
[2022-11-07] MEDS ORDERED: ACETAMINOPHEN 500 MG TABLET (FP) ONE (10:07)
[2022-11-07] MEDS ORDERED: ACETAMINOPHEN 500 MG TABLET (FP) PO PRN (15:46)
[2022-11-07 15:53] VITALS: RESP 18
[2022-11-07 15:59] VITALS: BP 127/70; PULSE 70; TEMP 97.9
== END 2022-11-07 11:00 | disposition home or self-care (01) ==
LOC: JASU-SURG 05:15
PROVIDERS: ATTEND Pain Medicine Pain Medicine
PROC: 3E0R33Z Introduction of Anti-inflammatory into Spinal Canal, Percutaneous Approach (ICD-10-PCS; principal; 2022-11-07 08:45)
DX: M54.12 Radiculopathy, cervical region (principal)
CPT/HCPCS: 76000-TC-FY; J1100

== ENCOUNTER 2023-02-09 12:58 | Emergency (ER) | payer OTHER ==
[2023-02-09 13:07] VITALS: BP 166/77; PULSE 77; RESP 16; TEMP 98; BMI 27.4
[2023-02-09] MEDS ORDERED: ACETAMINOPHEN 500 MG TABLET (FP) PO ONE (13:32)
[2023-02-09] MEDS ORDERED: KETOROLAC TROMETHAMINE 30 MG/1 ML VIAL IM ONE (13:32)
[2023-02-09] MEDS ORDERED: METHOCARBAMOL 500 MG TABLET PO ONE (13:32)
[2023-02-09] MEDS ORDERED: KETOROLAC TROMETHAMINE 30 MG/1 ML VIAL ONE (13:52)
[2023-02-09] MEDS ORDERED: METHOCARBAMOL 500 MG TABLET ONE (13:52)
[2023-02-09] MEDS ORDERED: ACETAMINOPHEN 500 MG TABLET (FP) ONE (13:52)
== END 2023-02-09 14:40 | disposition home or self-care (01) ==
LOC: JERFT 12:58
PROC: 3E0233Z Introduction of Anti-inflammatory into Muscle, Percutaneous Approach (ICD-10-PCS; principal; 2023-02-09)
DX: M54.42 Lumbago with sciatica, left side (principal); G89.29 Other chronic pain; M54.41 Lumbago with sciatica, right side
CPT/HCPCS: 96372; 99284-25

== ENCOUNTER 2023-02-20 04:53 | Day surgery (SDC) | payer OTHER ==
[2023-02-15 17:29] VITALS: BMI 27.4
[~2023-02-20 04:53] MED LIST changes: -DEXAMETHASONE SOD PHOSPHATE 10 MG/1 ML VIAL IM ONE; -IOHEXOL 180 MG/1 ML ML IJ ONE; +LIDOCAINE HCL 1% PRESERVATIVE FREE - 30ML VIAL IJ ONE
[2023-02-20 06:24] VITALS: RESP 18
[2023-02-20] MEDS ORDERED: LIDOCAINE HCL/PF 1% SDV 5ML VIAL ONE (07:17)
[2023-02-20] MEDS ORDERED: LIDOCAINE HCL 1% PRESERVATIVE FREE - 30ML VIAL IJ ONE (08:30)
[2023-02-20] MEDS ORDERED: ACETAMINOPHEN 325 MG TABLET (FP) PO ONE (09:35)
[2023-02-20] MEDS ORDERED: ACETAMINOPHEN 325 MG TABLET (FP) ONE (09:39)
[2023-02-20 10:40] VITALS: BP 133/76; PULSE 70; TEMP 98
[2023-02-20] MEDS ORDERED: ACETAMINOPHEN 500 MG TABLET (FP) PO PRN (14:51)
== END 2023-02-20 09:55 | disposition home or self-care (01) ==
LOC: JASU-SURG 04:53
PROVIDERS: ATTEND Pain Medicine Pain Medicine
PROC: 01HY3MZ Insertion of Neurostimulator Lead into Peripheral Nerve, Percutaneous Approach (ICD-10-PCS; principal; 2023-02-20 08:00)
DX: G89.4 Chronic pain syndrome (principal); M25.512 Pain in left shoulder
CPT/HCPCS: 64555; C1778

== ENCOUNTER 2023-03-21 08:42 | Inpatient (IN) | payer OTHER ==
[2023-03-21] MEDS ORDERED: ACETAMINOPHEN 1000 MG/100 ML BAG IVPB ONE (09:26)
[2023-03-21] MEDS ORDERED: VANCOMYCIN 1,000 MG in DEXTROSE 5%-WATER - 250 ML IVPB ONE (10:04)
[2023-03-21] MEDS ORDERED: ACETAMINOPHEN INJECTION 100 ML IVPB ONE (10:05)
[2023-03-21] MEDS ORDERED: ALBUTEROL SO4 HFA INHALER IH PRN (10:38)
[2023-03-21] MEDS ORDERED: METHOCARBAMOL 500 MG TABLET PO PRN (10:45)
[2023-03-21 10:58] LABS: POTASSIUM 4.6 mmol/L (3.5-5.1)
[2023-03-21 11:01] LABS: ALBUMIN 3.1 g/dl (3.4-5.0); BLOOD UREA NITROGEN 14.4 mg/dL (7-18); CALCIUM 8.9 mg/dL (8.5-10.1)
[2023-03-21] MEDS ORDERED: VANCOMYCIN 1 GRAM (PRE-DOCKED) 1,000 MG/250 ML BAG IVPB ONE (11:02)
[2023-03-21 11:05] LABS: CREATININE 0.7 mg/dL (0.55-1.3)
[2023-03-21 11:06] LABS: BILIRUBIN,TOTAL 0.7 mg/dL (0.2-1); TOT PROT 6.8 g/dl (6.4-8.2)
[2023-03-21 11:31] LABS: BASO % 0.6 % (0-2.0); EOS % 2.4 % (0-4.5); HEMATOCRIT 40.2 % (32.4-45.2); HEMOGLOBIN 12.8 GM/dL (10.7-15.3); LYMPH % 37.9 % (8-40); MCH 27.6 pg (25.7-33.7); MCHC 31.9 g/dl (32.0-36.0); MEAN CELL VOLUME 86.4 fl (80-96); MEAN PLT VOLUME 9.3 fl (7.5-11.1); MONO % 14.3 % (3.8-10.2); NEUT % 44.8 % (42.8-82.8); PLATELET COUNT 293 10^3/uL (134-434); RBC 4.65 M/mm3 (3.60-5.2); RDW 14.1 % (11.6-15.6); WHITE BLOOD COUNT 4.7 K/mm3 (4.0-10.0)
[2023-03-21 11:32] LABS: ERYTHROCYTE SEDIMENTATION RATE 21 mm/hr (0-30)
[2023-03-21] MEDS: CEFAZOLIN SODIUM 2 GM in DEXTROSE 5%-WATER 100 ML IVPB SCH (15:09)
[2023-03-21] MEDS: ACETAMINOPHEN 325 MG TABLET (FP) PO PRN ×2 (15:59→22:38)
[2023-03-21 20:03] VITALS: BMI 29.8
[2023-03-21] MEDS: ATORVASTATIN CA 40 MG TABLET (FP) PO SCH (22:38)
[2023-03-21] MEDS: HEPARIN NA (PORCINE) 5,000 UNITS/ML 1ML VIAL SQ SCH (22:39)
[2023-03-22] MEDS: CEFAZOLIN SODIUM 2 GM in DEXTROSE 5%-WATER 100 ML IVPB SCH ×3 (02:48→17:03)
[2023-03-22] MEDS: predniSONE 5 MG TABLET (UD) PO SCH (11:09)
[2023-03-22] MEDS: metoPROLOL SUCCINATE 25 MG TAB.SR.24H (FP) PO SCH (11:10)
[2023-03-22] MEDS: HEPARIN NA (PORCINE) 5,000 UNITS/ML 1ML VIAL SQ SCH ×2 (11:10→21:27)
[2023-03-22] MEDS: LOSARTAN POTASSIUM 50 MG TABLET PO SCH (11:10)
[2023-03-22] MEDS: ACETAMINOPHEN 325 MG TABLET (FP) PO PRN (11:11)
[2023-03-22] MEDS: PANTOPRAZOLE 40 MG TABLET PO SCH (11:11)
[2023-03-22] MEDS: ATORVASTATIN CA 40 MG TABLET (FP) PO SCH (21:28)
[2023-03-23] MEDS: CEFAZOLIN SODIUM 2 GM in DEXTROSE 5%-WATER 100 ML IVPB SCH ×3 (01:28→17:42)
[2023-03-23] MEDS: ACETAMINOPHEN 325 MG TABLET (FP) PO PRN (08:29)
[2023-03-23 09:08] LABS: HEMOGLOBIN 12.8 GM/dL (10.7-15.3); MCH 27.4 pg (25.7-33.7); MCHC 31.9 g/dl (32.0-36.0); MEAN CELL VOLUME 85.8 fl (80-96); PLATELET COUNT 297 10^3/uL (134-434); RBC 4.66 M/mm3 (3.60-5.2); WHITE BLOOD COUNT 5.5 K/mm3 (4.0-10.0)
[2023-03-23 09:40] LABS: POTASSIUM 4.2 mmol/L (3.5-5.1)
[2023-03-23 09:45] LABS: CALCIUM 9.1 mg/dL (8.5-10.1)
[2023-03-23 09:46] LABS: BLOOD UREA NITROGEN 12.3 mg/dL (7-18)
[2023-03-23 09:49] LABS: CREATININE 0.8 mg/dL (0.55-1.3)
[2023-03-23] MEDS: LOSARTAN POTASSIUM 50 MG TABLET PO SCH (10:19)
[2023-03-23] MEDS: PANTOPRAZOLE 40 MG TABLET PO SCH (10:19)
[2023-03-23] MEDS: metoPROLOL SUCCINATE 25 MG TAB.SR.24H (FP) PO SCH (10:19)
[2023-03-23] MEDS: HEPARIN NA (PORCINE) 5,000 UNITS/ML 1ML VIAL SQ SCH ×2 (10:19→21:47)
[2023-03-23] MEDS: predniSONE 5 MG TABLET (UD) PO SCH (10:19)
[2023-03-23] MEDS: ATORVASTATIN CA 40 MG TABLET (FP) PO SCH (21:47)
[2023-03-24] MEDS: CEFAZOLIN SODIUM 2 GM in DEXTROSE 5%-WATER 100 ML IVPB SCH ×3 (01:50→17:21)
[2023-03-24] MEDS: metoPROLOL SUCCINATE 25 MG TAB.SR.24H (FP) PO SCH (09:30)
[2023-03-24] MEDS: PANTOPRAZOLE 40 MG TABLET PO SCH (09:30)
[2023-03-24] MEDS: LOSARTAN POTASSIUM 50 MG TABLET PO SCH (09:30)
[2023-03-24] MEDS: HEPARIN NA (PORCINE) 5,000 UNITS/ML 1ML VIAL SQ SCH ×2 (09:30→21:28)
[2023-03-24] MEDS: predniSONE 5 MG TABLET (UD) PO SCH (09:30)
[2023-03-24] MEDS: ATORVASTATIN CA 40 MG TABLET (FP) PO SCH (21:27)
[2023-03-25] MEDS: CEFAZOLIN SODIUM 2 GM in DEXTROSE 5%-WATER 100 ML IVPB SCH ×3 (01:21→17:19)
[2023-03-25] MEDS: predniSONE 5 MG TABLET (UD) PO SCH (09:52)
[2023-03-25] MEDS: LOSARTAN POTASSIUM 50 MG TABLET PO SCH (09:53)
[2023-03-25] MEDS: PANTOPRAZOLE 40 MG TABLET PO SCH (09:53)
[2023-03-25] MEDS: HEPARIN NA (PORCINE) 5,000 UNITS/ML 1ML VIAL SQ SCH ×2 (09:53→22:11)
[2023-03-25] MEDS: metoPROLOL SUCCINATE 25 MG TAB.SR.24H (FP) PO SCH (09:54)
[2023-03-25] MEDS: LACTOBACILLUS ACIDOPHILUS 1 TABLET PO SCH (11:47)
[2023-03-25] MEDS: MULTIVITAMINS (DAILY MVI) TABLET (FP) PO SCH (11:47)
[2023-03-25] MEDS ORDERED: CEFAZOLIN SODIUM 2 GM VIAL ONE (17:00)
[2023-03-25] MEDS: ATORVASTATIN CA 40 MG TABLET (FP) PO SCH (22:12)
[2023-03-26] MEDS: CEFAZOLIN SODIUM 2 GM in DEXTROSE 5%-WATER 100 ML IVPB SCH ×2 (01:37→09:45)
[2023-03-26] MEDS: LACTOBACILLUS ACIDOPHILUS 1 TABLET PO SCH (09:46)
[2023-03-26] MEDS: predniSONE 5 MG TABLET (UD) PO SCH (09:46)
[2023-03-26] MEDS: HEPARIN NA (PORCINE) 5,000 UNITS/ML 1ML VIAL SQ SCH (09:46)
[2023-03-26] MEDS: metoPROLOL SUCCINATE 25 MG TAB.SR.24H (FP) PO SCH (09:46)
[2023-03-26] MEDS: LOSARTAN POTASSIUM 50 MG TABLET PO SCH (09:46)
[2023-03-26] MEDS: PANTOPRAZOLE 40 MG TABLET PO SCH (09:46)
[2023-03-26] MEDS: MULTIVITAMINS (DAILY MVI) TABLET (FP) PO SCH (09:46)
[2023-03-26 16:10] VITALS: BP 104/54; PULSE 75; RESP 18; TEMP 97.8
== END 2023-03-26 17:15 | disposition home health service (06) | DRG 603 ==
LOC: JER 08:42 → JERBED 09:59 → J5S 12:29
PROVIDERS: ADMIT Family Medicine; ATTEND Family Medicine
DX: L03.115 Cellulitis of right lower limb (principal); I10 Essential (primary) hypertension; E11.9 Type 2 diabetes mellitus without complications; K27.9 Peptic ulcer, site unspecified, unspecified as acute or chronic, without hemorrhage or perforation; I25.10 Atherosclerotic heart disease of native coronary artery without angina pectoris; E78.5 Hyperlipidemia, unspecified; K21.9 Gastro-esophageal reflux disease without esophagitis
CPT/HCPCS: 36415; 73590-TC-RT-FY; 80048; 80053; 82962; 83605; 85025; 85027; 85651; 93005; 93010; 99285-25; J1644

== ENCOUNTER 2023-04-02 11:48 | Observation (INO) | payer OTHER ==
[2023-04-02] MEDS ORDERED: ACETAMINOPHEN 1000 MG/100 ML BAG IVPB ONE (14:40)
[2023-04-02] MEDS ORDERED: ACETAMINOPHEN INJECTION 100 ML IVPB ONE (15:12)
[2023-04-02 17:12] LABS: BASO % 0.8 % (0-2.0); EOS % 1.6 % (0-4.5); HEMATOCRIT 40.2 % (32.4-45.2); HEMOGLOBIN 12.9 GM/dL (10.7-15.3); MCH 27.8 pg (25.7-33.7); MCHC 32.2 g/dl (32.0-36.0); MEAN CELL VOLUME 86.5 fl (80-96); MEAN PLT VOLUME 9.2 fl (7.5-11.1); MONO % 8.7 % (3.8-10.2); NEUT % 50.9 % (42.8-82.8); PLATELET COUNT 239 10^3/uL (134-434); RBC 4.65 M/mm3 (3.60-5.2); RDW 14.1 % (11.6-15.6); WHITE BLOOD COUNT 6.9 K/mm3 (4.0-10.0)
[2023-04-02 17:35] LABS: POTASSIUM 4.5 mmol/L (3.5-5.1)
[2023-04-02 17:37] LABS: ALBUMIN 3.6 g/dl (3.4-5.0); BLOOD UREA NITROGEN 13.1 mg/dL (7-18); CALCIUM 9.1 mg/dL (8.5-10.1)
[2023-04-02 17:40] LABS: CREATININE 0.7 mg/dL (0.55-1.3)
[2023-04-02 17:42] LABS: BILIRUBIN,TOTAL 0.5 mg/dL (0.2-1); TOT PROT 7.8 g/dl (6.4-8.2)
[2023-04-02] MEDS ORDERED: SULFAMETHOXAZOLE/TRIMETHOPRIM 800MG/160MG D.S. TABLET PO ONE (19:39)
[2023-04-02] MEDS ORDERED: AMOX TR/POT CLAV 875MG/125MG TABLETS (FP) PO ONE (19:50)
[2023-04-02] MEDS ORDERED: SULFAMETHOXAZOLE/TRIMETHOPRIM 800MG/160MG D.S. TABLET ONE (20:34)
[2023-04-02] MEDS ORDERED: AMOX TR/POT CLAV 875MG/125MG TABLETS (FP) ONE (20:34)
[2023-04-02] MEDS ORDERED: ATORVASTATIN CA 40 MG TABLET (FP) ONE (22:39)
[2023-04-02] MEDS: ATORVASTATIN CA 40 MG TABLET (FP) PO SCH (22:45)
[2023-04-03] MEDS ORDERED: ACETAMINOPHEN 325 MG TABLET (FP) ONE (03:36)
[2023-04-03] MEDS: ACETAMINOPHEN 325 MG TABLET (FP) PO PRN ×2 (03:40→15:20)
[2023-04-03] MEDS ORDERED: oxyCODONE HCL 5 MG TABLET PO ONE (05:20)
[2023-04-03] MEDS: INSULIN SLIDING SCALE (NOVOLOG) 1 VIAL SQ SCH ×4 (06:47→22:30)
[2023-04-03 07:01] VITALS: BMI 29.5
[2023-04-03 08:41] LABS: BASO % 0.8 % (0-2.0); EOS % 2.5 % (0-4.5); HEMATOCRIT 38.5 % (32.4-45.2); HEMOGLOBIN 12.6 GM/dL (10.7-15.3); LYMPH % 39.3 % (8-40); MCH 28.1 pg (25.7-33.7); MCHC 32.7 g/dl (32.0-36.0); MEAN CELL VOLUME 86.1 fl (80-96); MEAN PLT VOLUME 8.8 fl (7.5-11.1); MONO % 12.1 % (3.8-10.2); NEUT % 45.3 % (42.8-82.8); PLATELET COUNT 212 10^3/uL (134-434); RBC 4.47 M/mm3 (3.60-5.2); RDW 13.7 % (11.6-15.6)
[2023-04-03 09:03] LABS: POTASSIUM 4.1 mmol/L (3.5-5.1)
[2023-04-03 09:05] LABS: CALCIUM 8.7 mg/dL (8.5-10.1)
[2023-04-03 09:06] LABS: BLOOD UREA NITROGEN 12.8 mg/dL (7-18)
[2023-04-03 09:09] LABS: CREATININE 0.9 mg/dL (0.55-1.3)
[2023-04-03] MEDS: ENOXAPARIN NA (PORCINE) 40 MG/0.4 ML DISP.SYRIN SQ SCH (09:34)
[2023-04-03] MEDS: LOSARTAN POTASSIUM 50 MG TABLET PO SCH (09:34)
[2023-04-03] MEDS: metoPROLOL SUCCINATE 25 MG TAB.SR.24H (FP) PO SCH (09:34)
[2023-04-03] MEDS ORDERED: VANCOMYCIN PREMIX 1.5 GM 1,500 MG/300 ML BAG IVPB ONE (10:00)
[2023-04-03] MEDS ORDERED: ceFAZolin SODIUM 1 GM VIAL ONE (15:06)
[2023-04-03] MEDS: CEFAZOLIN 1 GM in DEXTROSE 5%-WATER - 50 ML IVPB SCH ×2 (15:08→18:09)
[2023-04-03] MEDS: ATORVASTATIN CA 40 MG TABLET (FP) PO SCH (22:29)
[2023-04-04] MEDS: CEFAZOLIN 1 GM in DEXTROSE 5%-WATER - 50 ML IVPB SCH ×2 (02:47→08:59)
[2023-04-04] MEDS: INSULIN SLIDING SCALE (NOVOLOG) 1 VIAL SQ SCH ×2 (06:36→12:35)
[2023-04-04 07:57] VITALS: TEMP 98.2
[2023-04-04] MEDS: ACETAMINOPHEN 325 MG TABLET (FP) PO PRN (08:58)
[2023-04-04] MEDS: ENOXAPARIN NA (PORCINE) 40 MG/0.4 ML DISP.SYRIN SQ SCH (08:59)
[2023-04-04] MEDS: LOSARTAN POTASSIUM 50 MG TABLET PO SCH (08:59)
[2023-04-04] MEDS: metoPROLOL SUCCINATE 25 MG TAB.SR.24H (FP) PO SCH (08:59)
[2023-04-04 14:39] VITALS: BP 115/70; PULSE 72; RESP 18
== END 2023-04-04 15:58 | disposition home or self-care (01) ==
LOC: JER 11:48 → JERBED 17:59 → J8W 04-03 06:07
PROVIDERS: ADMIT Internal Medicine; ATTEND Family Medicine
PROC: 3E033NZ Introduction of Analgesics, Hypnotics, Sedatives into Peripheral Vein, Percutaneous Approach (ICD-10-PCS; principal; 2023-04-02)
PROC: 3E03329 Introduction of Other Anti-infective into Peripheral Vein, Percutaneous Approach (ICD-10-PCS; 2023-04-02)
PROC: 3E023GC Introduction of Other Therapeutic Substance into Muscle, Percutaneous Approach (ICD-10-PCS; 2023-04-02)
DX: L03.115 Cellulitis of right lower limb (principal); I25.10 Atherosclerotic heart disease of native coronary artery without angina pectoris; E11.9 Type 2 diabetes mellitus without complications; I11.0 Hypertensive heart disease with heart failure; E78.5 Hyperlipidemia, unspecified; K21.9 Gastro-esophageal reflux disease without esophagitis; G89.29 Other chronic pain; M54.9 Dorsalgia, unspecified; K27.9 Peptic ulcer, site unspecified, unspecified as acute or chronic, without hemorrhage or perforation
CPT/HCPCS: 36415; 73590-TC-RT-FY; 73630-TC-RT-FY; 80048; 80053; 82962; 83605; 85025; 86140; 87040; 93005; 93010; 93971-TC; 96365; 96367; 96372; 96375; 99285-25; G0378

== ENCOUNTER 2024-01-30 08:49 | Day surgery (SDC) | payer OTHER ==
[2024-01-22 14:38] VITALS: BMI 27.4
[2024-01-30 11:50] VITALS: RESP 18; TEMP 97.4
[2024-01-30 11:51] VITALS: BP 131/74; PULSE 74
== END 2024-01-30 12:11 | disposition home or self-care (01) ==
LOC: FASU-ENDO 08:49
PROVIDERS: ATTEND Internal Medicine Gastroenterology
PROC: 0DB68ZX Excision of Stomach, Via Natural or Artificial Opening Endoscopic, Diagnostic (ICD-10-PCS; 2024-01-30)
PROC: 0DB48ZX Excision of Esophagogastric Junction, Via Natural or Artificial Opening Endoscopic, Diagnostic (ICD-10-PCS; 2024-01-30)
PROC: 0DB98ZX Excision of Duodenum, Via Natural or Artificial Opening Endoscopic, Diagnostic (ICD-10-PCS; principal; 2024-01-30 11:18)
DX: R10.13 Epigastric pain (principal); K29.50 Unspecified chronic gastritis without bleeding; K21.00 Gastro-esophageal reflux disease with esophagitis, without bleeding; Z98.84 Bariatric surgery status
CPT/HCPCS: 82962; 88305-TC; 88342-TC

== ENCOUNTER 2024-03-12 05:30 | Day surgery (SDC) | payer OTHER ==
[2024-03-07 14:55] VITALS: BMI 30.9
[~2024-03-12 05:30] MED LIST changes: +ACETAMINOPHEN 325 MG TABLET (FP) PO PRN; -LIDOCAINE HCL 1% PRESERVATIVE FREE - 30ML VIAL IJ ONE
[2024-03-12] MEDS ORDERED: KETOROLAC TROMETHAMINE 0.5% EYE DROP 1 DROP DROPS ONE (06:08)
[2024-03-12] MEDS ORDERED: PHENYLEPHRINE 2.5% OPTHALMIC DROP 2ML BOTTLE ONE (06:08)
[2024-03-12] MEDS ORDERED: TROPICAMIDE 1% OPHTH SOLN 15 ML BOTTLE ONE (06:09)
[2024-03-12] MEDS ORDERED: CYCLOPENTOLATE HCL 1% OPHTH SOLN 2 ML BOTTLE ONE (06:09)
[2024-03-12] MEDS ORDERED: OFLOXACIN 0.3% OPHTHALMIC SOLUTION 5 ML BOTTLE ONE (06:09)
[2024-03-12 06:28] VITALS: RESP 20
[2024-03-12] MEDS: TROPICAMIDE 1% OPHTH SOLN 15 ML BOTTLE OP SCH (06:37)
[2024-03-12] MEDS: CYCLOPENTOLATE HCL 1% OPHTH SOLN 2 ML BOTTLE OP SCH (06:37)
[2024-03-12] MEDS: OFLOXACIN 0.3% OPHTHALMIC SOLUTION 5 ML BOTTLE OP SCH (06:37)
[2024-03-12] MEDS: PHENYLEPHRINE 2.5% OPHTH SOLN 15 ML BOTTLE OP SCH (06:37)
[2024-03-12] MEDS: KETOROLAC TROMETHAMINE 0.5% EYE DROP 1 DROP DROPS OP SCH (06:37)
[2024-03-12] MEDS ORDERED: TETRACAINE 0.5% OPHTH SOLN 2 ML BOTTLE ONE (07:20)
[2024-03-12] MEDS ORDERED: BSS (NA/CA/MG/K) BALANCED SALT SOLUTION OPHTH SOLN 15 ML BOTTLE ONE (07:20)
[2024-03-12] MEDS ORDERED: EPINEPHrine/PF 1 MG/1 ML (1:1,000) AMPULE ONE (07:20)
[2024-03-12] MEDS ORDERED: POVIDONE-IODINE 5% OPHTHALMIC PREP 30 ML SOLUTION ONE (07:20)
[2024-03-12] MEDS ORDERED: LIDOCAINE HCL/PF 1% SDV 5ML VIAL ONE (07:20)
[2024-03-12] MEDS ORDERED: VANCOMYCIN 500 MG VIAL (RESTRICTED TO ID ONLY) ONE (07:20)
[2024-03-12] MEDS ORDERED: MIDAZOLAM HCL 2 MG/2 ML SINGLE DOSE VIAL ONE (07:49)
[2024-03-12] MEDS: TETRACAINE 0.5% OPHTH SOLN 2 ML BOTTLE OD ONE ×2 (08:16)
[2024-03-12] MEDS: POVIDONE-IODINE 5% OPHTHALMIC PREP 30 ML SOLUTION OD ONE ×2 (08:21)
[2024-03-12] MEDS: LIDOCAINE HCL 1% PRESERVATIVE FREE - 30ML VIAL IO ONE ×2 (08:24)
[2024-03-12] MEDS: BSS (NA/CA/MG/K) BALANCED SALT SOLUTION OPHTH SOLN 15 ML BOTTLE OD ONE ×3 (08:30)
[2024-03-12] MEDS: CHONDROITIN SU A/HYALUR SOD 1 KIT IO ONE ×2 (08:33)
[2024-03-12] MEDS: EPINEPHrine 1:1,000 1,000 MCG/ML ML SQ ONE ×2 (08:40)
[2024-03-12] MEDS: VANCOMYCIN 500 MG VIAL (RESTRICTED TO ID ONLY) IVPB ONE ×2 (08:42)
[2024-03-12 09:32] VITALS: BP 123/61; PULSE 84; TEMP 97.1
== END 2024-03-12 09:46 | disposition home or self-care (01) ==
LOC: JASU-SURG 05:30
PROVIDERS: ATTEND Ophthalmology
PROC: 08RJ3JZ Replacement of Right Lens with Synthetic Substitute, Percutaneous Approach (ICD-10-PCS; principal; 2024-03-12 08:00)
DX: H26.9 Unspecified cataract (principal)
CPT/HCPCS: 82962; V2632